=== PATIENT | female | born 1995 | race Caucasian/White ===

== ENCOUNTER 2024-08-26 20:16 | Emergency (ER) | payer SELFPAY ==
[2024-08-26] MEDS ORDERED: Ondansetron 4 MG/2 ML VIAL IV ONE ×2 (20:30→23:00)
[2024-08-26 20:43] LABS: HEMATOCRIT 42.9 % (37.0-47.0); HEMOGLOBIN 14.1 g/dL (12.5-16.0); LYMPH# 1.05 K/mm3 (1.50-4.00); MEAN CELL VOLUME 103 fl (78-100); MEAN CORPUSCULAR HEMOGLOBIN 34 pg (27-31); MEAN CORPUSCULAR HGB CONC 33 g/dL (33-37); MEAN PLATELET VOLUME 8.3 fl (7.4-10.4); MONO # 0.31 K/mm3 (0.20-0.80); NEU # 9.99 K/mm3 (1.40-6.50); PLATELET COUNT 334 K/mm3 (130-400); RED BLOOD COUNT 4.17 M/mm3 (4.10-5.30); RED CELL DISTRIBUTION WIDTH 12.8 % (11.5-14.5); WHITE BLOOD COUNT 11.4 K/mm3 (4.8-10.8)
[2024-08-26 20:46] LABS: ALBUMIN 4.8 g/dL (3.5-5.0)
[2024-08-26 20:49] LABS: TOTAL PROTEIN 8.5 g/dL (6.4-8.3)
[2024-08-26 20:51] LABS: TOTAL BILIRUBIN 0.5 mg/dL (0.2-1.2)
[2024-08-26 21:20] LABS: URINE APPEARANCE SLIGHTLY CLOUDY (CLEAR); URINE COLOR YELLOW (YELLOW)
[2024-08-26 21:21] LABS: PH-URINE 5.5 (5.0 - 8.0); URINE BILIRUBIN NEGATIVE (NEGATIVE); URINE BLOOD NEGATIVE (NEGATIVE); URINE GLUCOSE NEGATIVE (NEGATIVE); URINE KETONE 4+ (NEGATIVE); URINE LEUKOCYTE ESTERASE NEGATIVE (NEGATIVE); URINE NITRATE NEGATIVE (NEGATIVE); URINE PROTEIN(semi-quant) 1+ (NEGATIVE)
[2024-08-26] MEDS ORDERED: Iohexol 300 - 100 ML VIAL IV ONE (22:04)
[2024-08-26 22:45] LABS: URINE APPEARANCE CLEAR (CLEAR); URINE COLOR YELLOW (YELLOW)
[2024-08-26 22:46] LABS: PH-URINE 5.5 (5.0 - 8.0); URINE BILIRUBIN NEGATIVE (NEGATIVE); URINE BLOOD TRACE-INTACT (NEGATIVE); URINE GLUCOSE NEGATIVE (NEGATIVE); URINE KETONE 4+ (NEGATIVE); URINE LEUKOCYTE ESTERASE NEGATIVE (NEGATIVE); URINE NITRATE NEGATIVE (NEGATIVE); URINE PROTEIN(semi-quant) NEGATIVE (NEGATIVE)
[2024-08-26] MEDS ORDERED: CEPHALEXIN500 M1 PO (22:52)
[2024-08-26] MEDS ORDERED: ZOFRAN ODT4 MG PO (22:52)
[2024-08-26] MEDS ORDERED: Ketorolac 30 MG/ML VIAL IV ONE (23:00)
[2024-08-26] MEDS ORDERED: cefTRIAXone 1 G in Water For Injection,Sterile 10 ML IV ONE (23:00)
[2024-08-26] MEDS ORDERED: diphenhydrAMINE 50 MG/ML 1 ML VIAL IV ONE (23:00)
[2024-08-26 23:26] VITALS: BP 135/88
== END 2024-08-26 23:26 | disposition home or self-care (01) ==
LOC: ED 20:16
PROVIDERS: Family Medicine
DX: R11.2 Nausea with vomiting, unspecified (principal); M54.50 Low back pain, unspecified; K76.0 Fatty (change of) liver, not elsewhere classified; R51.9 Headache, unspecified; N39.0 Urinary tract infection, site not specified; R53.1 Weakness; E86.0 Dehydration; F17.200 Nicotine dependence, unspecified, uncomplicated
CPT/HCPCS: J0696; J0780; J1200; J1885; J2405; J7120; Q9967